=== PATIENT | female | born 1990 | race Caucasian/White ===

== ENCOUNTER 2016-07-07 16:59 | Emergency (ER) | payer OTHER ==
[~2016-07-07] VITALS: Ht 177.8 cm; Wt 104.3 kg
[~2016-07-07 16:59] MED LIST: BACTRIM DS TAB1 EACH PO; CELEXA40 MG; CIPROFLOXACIN500 M1 PO; CYCLOBENZAPRINE5 MG PO; IBUPROFEN 800800 MG PO; KEFLEX500 MG PO; LEVOTHYROXIN0.125 M1 PO; MEDROLDOSEPACK PO; NORCO 5-325 TA1 EACH PO; NORFLEX100 MG PO; PAXIL10 MG PO
[2016-07-07 17:00] VITALS: BP 131/92
[2016-07-07] MEDS ORDERED: PREDNISONE 10 M10 MG PO (17:21)
[2016-07-07] MEDS ORDERED: NORFLEX100 MG PO (17:21)
[2016-07-07 17:24] LABS: URINE BILIRUBIN NEGATIVE (Negative); URINE BLOOD NEGATIVE (Negative); URINE COLOR YELLOW; URINE GLUCOSE-RANDOM* NEGATIVE (Negative); URINE KETONES NEGATIVE (Negative); URINE NITRITE NEGATIVE (Negative); URINE PROTEIN (DIPSTICK) NEGATIVE (Negative); URINE UROBILINOGEN 0.2 E.U./dl (0.2-1.0)
[2016-08-16] MEDS ORDERED: HYDROCODONE-AP1 EAC6 PO (20:03)
[2016-08-16] MEDS ORDERED: KEFLEX500 MG PO (21:44)
[2016-08-16] MEDS ORDERED: IBUPROFEN 600600 M1 PO (21:44)
== END 2016-07-07 17:50 | disposition home or self-care (01) ==
LOC: ER 16:59
PROVIDERS: Physician Assistant
DX: M54.9 Dorsalgia, unspecified (principal); G89.29 Other chronic pain; Z87.442 Personal history of urinary calculi; F41.9 Anxiety disorder, unspecified

== ENCOUNTER 2016-12-08 17:31 | Emergency (ER) | payer OTHER ==
[~2016-12-08] VITALS: Ht 172.7 cm; Wt 79.4 kg
[~2016-12-08 17:31] MED LIST changes: +HYDROCODONE-AP1 EAC6 PO; +IBUPROFEN 600600 M1 PO; +PREDNISONE 10 M10 MG PO
[2016-12-08 17:49] VITALS: BP 144/101
[2016-12-08] MEDS ORDERED: FLEXERIL PO (18:04)
[2016-12-08] MEDS ORDERED: PREDNISONE 20 M20 MG PO (18:04)
[2016-12-08] MEDS ORDERED: NORCO 5-325 TA1 EACH PO (18:09)
== END 2016-12-08 18:19 | disposition home or self-care (01) ==
LOC: ER 17:31
DX: S51.011A Laceration without foreign body of right elbow, initial encounter (principal); M54.5 Low back pain; G89.29 Other chronic pain; Z87.442 Personal history of urinary calculi; F41.9 Anxiety disorder, unspecified; X58.XXXA Exposure to other specified factors, initial encounter; Y93.89 Activity, other specified; Y92.89 Other specified places as the place of occurrence of the external cause; Y99.8 Other external cause status